=== PATIENT | male | born 2000 | race Two or more races ===

== ENCOUNTER 2019-12-07 14:42 | Emergency (ER) | payer MEDICAID ==
[~2019-12-07] VITALS: Ht 180.3 cm; Wt 77.0 kg
[2019-12-07] MEDS ORDERED: ONDANSETRON 4MG ODT PO ONE (20:15)
[2019-12-07 21:10] LABS: CHLORIDE 105 mEq/L (98-107); HEMATOCRIT 44.9 % (42.0-52.0); HEMOGLOBIN 14.9 g/dL (14.0-18.0); MEAN CORPUSCULAR VOLUME 81.7 fL (80.0-94.0); PLATELET 189 x1000/uL (130-400); RED CELL DISTRIBUTION WIDTH 14.6 % (11.6-14.6)
[2019-12-07 22:54] VITALS: BP 93/50
== END 2019-12-07 23:23 | disposition home or self-care (01) ==
LOC: ER 14:42
DX: R42 Dizziness and giddiness (principal); R53.1 Weakness; R11.0 Nausea
CPT/HCPCS: 36415; 80053; 84484; 85027; 93005; 99284; Q0162

== ENCOUNTER 2021-12-06 12:44 | Emergency (ER) | payer MEDICAID, OTHER ==
[~2021-12-06] VITALS: Ht 182.9 cm; Wt 82.0 kg
[2021-12-06 14:15] VITALS: BP 126/67
[2021-12-06] MEDS ORDERED: KETOROLAC 30MG/ML VIAL IM ONE (14:15)
[2021-12-06] MEDS ORDERED: CYCLOBENZAPRINE 10MG TABLET PO SCH (14:15)
[2021-12-06] MEDS ORDERED: ACETAMINOPHEN 325MG TABLET PO ONE (14:15)
[2021-12-06] MEDS ORDERED: CYCL5TAB MT (15:37)
== END 2021-12-06 16:32 | disposition home or self-care (01) ==
LOC: ER 12:44
DX: S39.012A Strain of muscle, fascia and tendon of lower back, initial encounter (principal); X50.0XXA Overexertion from strenuous movement or load, initial encounter; Y93.89 Activity, other specified; Y92.89 Other specified places as the place of occurrence of the external cause; Y99.8 Other external cause status
CPT/HCPCS: 72100; 96372; 99283; J1885